=== PATIENT | female | born 1975 | race Caucasian/White ===

== ENCOUNTER 2017-05-15 10:55 | Emergency (ER) | payer OTHER ==
[2017-05-15] MEDS ORDERED: LIDOCAINE 2% VISCOUS 15 ML UDCUP PO ONE (11:14)
[2017-05-15] MEDS ORDERED: MAG HYDROX/AL HYDROX/SIMETH 30 ML UDCUP PO ONE (11:14)
--- NOTE | 2017-05-15 11:19 | EDPHY ---
H & P Stated Complaint: ST, nausea since Tuesday Time Seen by Provider: 05/15/17 11:15 HPI/ROS: HPI: This is a 42-year-old female who presents with Chief Complaint: Sore throat Location: Throat Quality: Sore Duration: 3 days Signs and Symptoms: + subjective low-grade fevers, + fatigue, + discomfort with swallowing, no trismus, no ear pain, no neck stiffness, no headache, no dysphonia Timing: Sudden Severity: Moderate Context: Patient reports with 3 days of sore throat, fatigue, dry cough. Reports that her child had a similar illness last week. She took some ibuprofen this morning with some transient relief. She reports that she feels like she has the flu. Has not had any recent travel outside of [place]. Last menstrual period was 2 weeks ago. has had a vasectomy. Modifying Factors: Ibuprofen Comment: ROS: Constitutional: + fever, no chills, no weight loss Eyes: No blurred vision Respiratory: No shortness of breath, + cough Cardiovascular: No chest pain Gastrointestinal: No nausea, no vomiting no diarrhea Genitourinary: No dysuria Extremities: No myalgias Neurologic: No weakness, no numbness Skin: No rashes Hematologic: No bruising, no bleeding MEDICAL/SURGICAL HISTORY: Anxiety, depression. Source: Patient Exam Limitations: No limitations - Personal History LMP (Females 10-55): Irregular Current Tetanus/Diphtheria Vaccine: Yes Current Tetanus Diphtheria and Acellular Pertussis (TDAP): Yes Tetanus Vaccine Date: < 10 yers - Medical/Surgical History Hx Asthma: No Hx Chronic Respiratory Disease: No Hx Diabetes: No Hx Cardiac Disease: No Hx Renal Disease: No Hx Cirrhosis: No Hx Alcoholism: No Hx HIV/AIDS: No Hx Splenectomy or Spleen Trauma: No Other PMH: anxiety, stress induced hypertension - Social History Smoking Status: Never smoked - Physical Exam Exam: CONSTITUTIONAL: Middle-aged white female, polite, nontoxic in appearance awake and alert, no obvious distress HEENT: Atraumatic and normocephalic, PERRL, EOMI. Tympanic membranes clear. Oropharynx clear, tonsil no hypertrophy; no erythema; no exudate, uvula midline and moist pink mucosa. Airway patent. Mild spotty anterior cervical lymphadenopathy. No meningismus. Cardiovascular: Normal S1/S2, regular rate, regular rhythm, without murmur rub or gallop. PULMONARY/CHEST: Symmetrical and nontender. Clear to auscultation bilaterally. Good air movement. No accessory muscle usage. ABDOMEN: Soft, nondistended, nontender, no rebound, no guarding, no peritoneal signs, no masses or organomegaly. No CVAT. EXTREMITIES: 2/2 pulses, no deformities, no clubbing, no cyanosis or edema. NEUROLOGICAL: no focal neuro deficits. GCS 15. Speech clear. SKIN: Warm and dry, no erythema. no rash. Good capillary refill. Constitutional: Initial Vital Signs Temperature (C) 37.8 C 05/15/17 10:58 Heart Rate 101 H 05/15/17 10:58 Respiratory Rate 20 05/15/17 10:58 Blood Pressure 143/88 H 05/15/17 10:58 O2 Sat (%) 97 05/15/17 10:58 O2 Delivery Mode Room Air Allergies/Adverse Reactions: Sulfa (Sulfonamide Antibiotics) Allergy (Unknown, Verified 05/15/17 10:57) Home Medications: Medication Instructions Recorded Lexapro 05/15/17 Propranolol HCl 05/15/17 Medical Decision Making ED Course/Re-evaluation: Strep test, rapid molecular panel nasal swab, oral medications Given PO viscous lidocaine and Decadron for sore throat/inflammation Strep negative No signs of SIRS/airway compromise/tonsillar abscess/Adeel's angina/ lymphadenitis Advised supportive care; suspect viral in nature Differential Diagnosis: Differential diagnosis includes but is not limited to strep pharyngitis, viral syndrome, upper respiratory infection, bronchitis. - Data Points Laboratory Results: 05/15/17 05/15/17 Unknown 11:15 Group A Strep Screen NEGATIVE (NEGATIVE) Group A Strep DNA Pending Medications Given: Discontinued Medications Al Hydroxide/Mg Hydroxide (Maalox Susp) 30 ml PO ONCE ONE Stop: 05/15/17 11:15 Last Admin: 05/15/17 11:25 Dose: 30 ml Lidocaine (Lidocaine 2% Viscous) 15 ml PO ONCE ONE Stop: 05/15/17 11:15 Last Admin: 05/15/17 11:25 Dose: 15 ml Departure - Departure Clinical Impression: Viral pharyngitis Condition: Good Instructions: Pharyngitis (ED) Additional Instructions: You strep test is negative today. It appears to have a viral illness. Antibiotics are not indicated at this time. Take 600-800 mg of ibuprofen every 6-8 hours as needed with food for pain and inflammation. Use [id number] Chloraseptic spray or cough drops as needed for sore throat. Rest as much as possible over the next few days. Drink plenty of fluids to prevent dehydration. Referrals: Raven Gonsalez MD [Primary Care Provider] - 5-7 days, if not improved
[2017-05-15 12:50] VITALS: BP 118/78; PULSE 97; RESP 16; TEMP 100; O2SAT 93
[2017-05-15] MEDS ORDERED: DEXAMETHASONE 4 MG TAB PO ONE (13:16)
== END 2017-05-15 13:28 | disposition home or self-care (01) ==
DX: J02.8 Acute pharyngitis due to other specified organisms (principal); B97.89 Other viral agents as the cause of diseases classified elsewhere